=== PATIENT | female | born 1985 | race Caucasian/White ===

== ENCOUNTER 2017-03-22 00:29 | Emergency (ER) | payer OTHER ==
[2017-03-22 01:21] VITALS: BP 108/65; PULSE 84; TEMP 98; BMI 26.6
[2017-03-22] MEDS ORDERED: LIDOCAINE HCL 1%, 10 MG/ML (50 mL VIAL) SQ ONE (02:40)
[2017-03-22] MEDS ORDERED: BUPIVACAINE HCL/PF (5 MG/ML) 30 ML VIAL IJ ONE (02:41)
[2017-03-22] MEDS ORDERED: diazePAM 2 MG TABLET PO ONE (03:02)
--- NOTE | 2017-03-22 03:21 | PDOC ---
History of Present Illness - General Chief Complaint: Oral Ulcers Stated Complaint: GUM PAIN Time Seen by Provider: 03/22/17 01:30 Past History - Past Medical History Allergies/Adverse Reactions: Allergies Allergy/AdvReac Type Severity Reaction Status Date / Time ibuprofen Allergy Swelling Verified 03/22/17 02:34 Home Medications: Ambulatory Orders NK [No Known Home Medication] 11/30/15 Anemia: Yes - Immunization History Immunization Up to Date: Yes - Suicide/Smoking/Psychosocial Hx Smoking History: Smoker current status UNK Have you smoked in the past 12 months: No Number of Cigarettes Smoked Daily: 2 Information on smoking cessation initiated: No 'Breaking Loose' booklet given: 05/02/15 Hx Alcohol Use: No Drug/Substance Use Hx: No Substance Use Type: None *Physical Exam - Vital Signs Last Vital Signs Temp Pulse Resp BP Pulse Ox 98.0 F 84 18 108/65 100 03/22/17 01:19 03/22/17 01:19 03/22/17 01:19 03/22/17 01:19 03/22/17 01:19 *DC/Admit/Observation/Transfer Diagnosis at time of Disposition: Pain, dental - Discharge Dispostion Disposition: HOME Condition at time of disposition: Stable Admit: No - Referrals Referrals: Nisa Dockery MD [Primary Care Provider] - - Patient Instructions Printed Discharge Instructions: DI for Dental Pain Additional Instructions: As discussed, you must follow up with oral surgeon TOMORROW. Continue taking the Percocet and antibiotics that were prescribed by your surgeon as prescribed. If you develop any fever, chills, vomiting, diarrhea, difficulty breathing, or any new or worsening symptoms, please return to the ER. - Post Discharge Activity Forms/Work/School Notes: Back to Work
== END 2017-03-22 04:08 | disposition home or self-care (01) ==
LOC: JER 00:29
PROC: 3E0T3BZ Introduction of Anesthetic Agent into Peripheral Nerves and Plexi, Percutaneous Approach (ICD-10-PCS; principal; 2017-03-22)
PROC: 3E0T3BZ Introduction of Anesthetic Agent into Peripheral Nerves and Plexi, Percutaneous Approach (ICD-10-PCS; 2017-03-22)
DX: K08.89 Other specified disorders of teeth and supporting structures (principal)
CPT/HCPCS: 99281-25

== ENCOUNTER 2017-05-14 07:12 | Emergency (ER) | payer OTHER ==
[2017-05-14 07:19] VITALS: BMI 27.4
[2017-05-14] MEDS ORDERED: MAG HYDROX/AL HYDROX/SIMETH 30 ML UNIT-DOSE CUP PO ONE (07:49)
[2017-05-14] MEDS ORDERED: FAMOTIDINE IV 20 MG/12 ML VIAL IVPUSH ONE (07:49)
[2017-05-14] MEDS ORDERED: SODIUM CHLORIDE 1,000 ML IV STA (07:50)
[2017-05-14] MEDS ORDERED: ONDANSETRON 4 MG/2 ML VIAL IVPUSH ONE (07:50)
[2017-05-14] MEDS ORDERED: ONDANSETRON 4 MG/2 ML VIAL ONE (07:55)
[2017-05-14] MEDS ORDERED: MAG HYDROX/AL HYDROX/SIMETH 30 ML UNIT-DOSE CUP ONE (07:55)
[2017-05-14] MEDS ORDERED: FAMOTIDINE 20 MG/50 ML IVPB 20 MG/50 ML MG IVPB ONE (07:55)
--- NOTE | 2017-05-14 07:59 | PDOC ---
History of Present Illness - General Chief Complaint: Vomiting/Diarrhea Stated Complaint: VOMITING/DIARRHEA Time Seen by Provider: 05/14/17 07:37 History Source: Patient - History of Present Illness Timing/Duration: reports: other (last night) Abdominal Pain Onset Location: reports: epigastric Past History - Past Medical History Allergies/Adverse Reactions: Allergies Allergy/AdvReac Type Severity Reaction Status Date / Time ibuprofen Allergy Swelling Verified 05/14/17 07:19 Home Medications: Ambulatory Orders Metoclopramide HCl [Reglan] 10 mg PO Q8H #15 tablet 05/14/17 Ranitidine HCl [Zantac] 150 mg PO BID #14 tablet 05/14/17 Anemia: Yes ("borderline") Asthma: Yes COPD: No Other medical history: migraines - Immunization History Immunization Up to Date: Yes - Suicide/Smoking/Psychosocial Hx Smoking History: Smoker current status UNK Have you smoked in the past 12 months: No Number of Cigarettes Smoked Daily: 2 'Breaking Loose' booklet given: 05/02/15 Hx Alcohol Use: No Drug/Substance Use Hx: No Substance Use Type: None Review of Systems - Review of Systems Constitutional: No: Chills, Fever Respiratory: No: Shortness of Breath ABD/GI: Yes: Diarrhea, Nausea, Vomiting *Physical Exam - Vital Signs Last Vital Signs Temp Pulse Resp BP Pulse Ox 98.0 F 107 H 16 105/70 97 05/14/17 07:17 05/14/17 07:17 05/14/17 07:17 05/14/17 07:17 05/14/17 07:17 - Physical Exam General Appearance: Yes: Appropriately Dressed, Mild Distress HEENT: positive: Normal Voice Neck: positive: Supple Respiratory/Chest: negative: Respiratory Distress Gastrointestinal/Abdominal: positive: Normal Bowel Sounds, Tender (to epigastrium), Soft. negative: Distended, Guarding, Rebound Musculoskeletal: negative: CVA Tenderness Integumentary: positive: Dry, Warm Neurologic: positive: Fully Oriented, Alert, Normal Mood/Affect ED Treatment Course - LABORATORY CBC & Chemistry Diagram: 05/14/17 08:15 05/14/17 08:15 Medical Decision Making - Medical Decision Making 05/14/17 07:50 31-year-old female, endorses history of "acid reflux", not currently on medication, here with retrosternal burning pain radiating to throat w/ excessive burping, several episodes of nausea, vomiting and diarrhea since last night. States symptoms similar to her GERD, but worse and more constant. No hematemesis, hematochezia, melena, constipation, fever or chills. States she was told she needed an endoscopy in the near future but has not yet arranged to do so. Did have a colonoscopy in the past secondary to constipation and states colonoscopy was normal. See exam Possible GERD/gastritis, no h/o ulcer but no upper scope in past, very low suspicion for fortino, no RF for pancreatitis and NT over mcburneys Not on meds Tachy to 107 w/ minimal ttp to epigastrium -GI cocktail -labs -reassess/po trial -anticipate discharge to f/u with GI if labs wnl and pt improved 05/14/17 09:48 Found to be in ED, patient was not aware. Pt (s/p 1 elective AB ). No lower abd pain or vag bleed. Gets normal monthly periods and states last menstrual period was April 11 but does report that it was not entirely normal. States her last "normal" period was in January 2017. Beta and US pending. Epigastric pain and nausea since improved w/ meds 05/14/17 11:36 Beta 585. US read as small amount of fluid in the endometrial cavity with no evidence of identifiable IUP. No adnexal mass or FF seen. Recommending repeat evaluation with ultrasound and beta. Patient informed of results and given follow-up with Dr. Lennon of [facility]. Told she will need reassessment in 48 hours and if unable to see Dr. Lennon, should return to the ER. Pt reports no symptoms at this time and able to becca po. Stable for discharge *DC/Admit/Observation/Transfer Diagnosis at time of Disposition: Epigastric pain Qualifiers: Weeks of gestation: unspecified Qualified Code(s): Z34.90 - Encounter for supervision of normal , unspecified, unspecified trimester - Discharge Dispostion Disposition: HOME Condition at time of disposition: Improved - Prescriptions Prescriptions: Metoclopramide HCl [Reglan] 10 mg PO Q8H #15 tablet Ranitidine HCl [Zantac] 150 mg PO BID #14 tablet - Referrals Referrals: Nisa Dockery MD [Primary Care Provider] - Juan Luis Lennon MD [Staff Physician] - - Patient Instructions Printed Discharge Instructions: Managing Symptoms of , DI for Gastroesophageal Reflux Disease (GERD) Additional Instructions: You were found to be today. Your beta hCG was approximately 585. Your ultrasound did not show an identifiable at this time. This is possibly due to early . You will need a repeat evaluation with beta hCG and ultrasound in [address] Lennon for an appointment, but if you are unable to see him in 48 hours, return to the ER for reassessment. Take medications as prescribed. If symptoms worsen, return to ER - Post Discharge Activity
[2017-05-14 08:38] LABS: URINE APPEARANCE SLCLOUDY; URINE BILIRUBIN NEGATIVE (NEGATIVE); URINE BLOOD NEGATIVE (NEGATIVE); URINE COLOR YELLOW; URINE GLUCOSE (UA) NEGATIVE (NEGATIVE); URINE KETONE NEGATIVE (NEGATIVE); URINE LEUK ESTERASE NEGATIVE (NEGATIVE); URINE NITRITE NEGATIVE (NEGATIVE); URINE PROTEIN NEGATIVE (NEGATIVE); URINE UROBILINOGEN NEGATIVE mg/dL (0.2-1.0)
[2017-05-14 08:48] LABS: BASO % 0.1 % (0-2.0); EOS % 0.1 % (0-4.5); HEMATOCRIT 40.3 % (32.4-45.2); HEMOGLOBIN 12.6 GM/dL (10.7-15.3); LYMPH % 3.6 % (8-40); MCH 25.2 pg (25.7-33.7); MCHC 31.1 g/dl (32.0-36.0); MEAN CELL VOLUME 80.9 fl (80-96); MEAN PLT VOLUME 9.4 fl (7.5-11.1); MONO % 1.2 % (3.8-10.2); PLATELET COUNT 289 K/MM3 (134-434); RBC 4.99 M/mm3 (3.60-5.2); RDW 14.2 % (11.6-15.6); WHITE BLOOD COUNT 12.8 K/mm3 (4.0-10.0)
[2017-05-14 09:00] LABS: ALBUMIN 3.6 g/dl (3.4-5.0); ALK PHOS 74 U/L (45-117); ANION GAP 8 (8-16); BILIRUBIN,TOTAL 0.6 mg/dL (0.2-1.0); BLOOD UREA NITROGEN 15 mg/dL (7-18); CALCIUM 8.3 mg/dL (8.5-10.1); CHLORIDE 104 mmol/L (98-107); CO2 24 mmol/L (21-32); CREATININE 1.1 mg/dL (0.55-1.02); GLUCOSE,RANDOM 121 mg/dL (74-106); POTASSIUM 4.1 mmol/L (3.5-5.1); SGOT/AST 14 U/L (15-37); SGPT/ALT 26 U/L (12-78); SODIUM 136 mmol/L (136-145); TOT PROT 7.3 g/dl (6.4-8.2)
[2017-05-14] MEDS ORDERED: RANITIDINE HCL 150 MG TABLET (FP) PO ONE (09:21)
[2017-05-14] MEDS ORDERED: RANITIDINE HCL 150 MG TABLET (FP) ONE (09:53)
[2017-05-14 12:05] VITALS: BP 107/65; PULSE 92; TEMP 97.9
== END 2017-05-14 12:05 | disposition home or self-care (01) ==
LOC: JER 07:12
PROC: 3E033GC Introduction of Other Therapeutic Substance into Peripheral Vein, Percutaneous Approach (ICD-10-PCS; principal; 2017-05-14)
PROC: 3E033GC Introduction of Other Therapeutic Substance into Peripheral Vein, Percutaneous Approach (ICD-10-PCS; 2017-05-14)
DX: O26.891 Other specified pregnancy related conditions, first trimester (principal); R10.13 Epigastric pain; Z3A.01 Less than 8 weeks gestation of pregnancy
CPT/HCPCS: 36415; 76817-TC; 80053; 81003; 83690; 84702; 84703; 85025; 96374; 96375; 99285-25

== ENCOUNTER 2017-05-16 09:46 | Emergency (ER) | payer OTHER ==
[2017-05-16 10:23] VITALS: BP 103/54; PULSE 88; TEMP 98.1; BMI 25.8
--- NOTE | 2017-05-16 12:45 | PDOC ---
History of Present Illness - General Chief Complaint: Revisit, Lab Variance Stated Complaint: FOLLOW-UP Time Seen by Provider: 05/16/17 10:51 History Source: Patient Exam Limitations: No Limitations - History of Present Illness Initial Comments: 05/16/17 12:42 31 yr female states she was diagnosed with 2 days ago here for followup beta. Pt has no pain no bleeding. LMP 04/13/17 05/16/17 17:41 Past History - Past Medical History Allergies/Adverse Reactions: Allergies Allergy/AdvReac Type Severity Reaction Status Date / Time ibuprofen Allergy Swelling Verified 05/16/17 10:16 Home Medications: Ambulatory Orders NK [No Known Home Medication] 05/16/17 Anemia: Yes ("borderline") Asthma: Yes COPD: No - Immunization History Immunization Up to Date: Yes - Suicide/Smoking/Psychosocial Hx Smoking History: Former smoker Have you smoked in the past 12 months: Yes Number of Cigarettes Smoked Daily: 1 If you are a former smoker, when did you quit?: 10/16 Information on smoking cessation initiated: No 'Breaking Loose' booklet given: 05/02/15 Hx Alcohol Use: No Drug/Substance Use Hx: No Substance Use Type: None Review of Systems - Review of Systems Able to Perform ROS?: Yes Is the patient limited Syrian proficient: No Constitutional: No: Symptoms Reported HEENTM: No: Symptoms Reported Respiratory: No: Symptoms reported Cardiac (ROS): No: Symptoms Reported ABD/GI: No: Symptoms Reported : No: Symptoms Reported Musculoskeletal: No: Symptoms Reported Integumentary: No: Symptoms Reported Neurological: No: Symptoms reported *Physical Exam - Vital Signs Last Vital Signs Temp Pulse Resp BP Pulse Ox 98.1 F 88 16 103/54 100 05/16/17 10:17 05/16/17 10:17 05/16/17 10:17 05/16/17 10:17 05/16/17 10:17 - Physical Exam General Appearance: Yes: Nourished, Appropriately Dressed HEENT: positive: EOMI, MICAH Gastrointestinal/Abdominal: positive: Normal Bowel Sounds, Soft Extremity: positive: Normal Capillary Refill, Normal Inspection, Normal Range of Motion Integumentary: positive: Normal Color, Dry, Warm 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 *DC/Admit/Observation/Transfer Diagnosis at time of Disposition: at early stage - Discharge Dispostion Disposition: HOME Condition at time of disposition: Good - Referrals Referrals: Nisa Dockery MD [Primary Care Provider] - - Patient Instructions Additional Instructions: follow with your oxygen equipment preparer as planned start taking a pre- vitamin with folic acid (any over the counter brand) return to ER for any severe pain, vaginal bleeding or any other concerns - Post Discharge Activity
== END 2017-05-16 12:48 | disposition home or self-care (01) ==
LOC: JERFT 09:46
DX: Z32.01 Encounter for pregnancy test, result positive (principal)
CPT/HCPCS: 36415; 84702; 99281-25

== ENCOUNTER 2017-07-17 16:02 | Emergency (ER) | payer OTHER ==
[2017-07-17 16:36] VITALS: BP 111/59; PULSE 82; TEMP 97.7; BMI 28.1
--- NOTE | 2017-07-17 16:38 | PDOC ---
Rapid Medical Evaluation Time Seen by Provider: 07/17/17 16:36 Medical Evaluation: Allergies Allergy/AdvReac Type Severity Reaction Status Date / Time ibuprofen Allergy Swelling Verified 07/17/17 16:34 Vital Signs Temp Pulse Resp BP Pulse Ox 97.7 F 82 19 111/59 99 07/17/17 16:34 07/17/17 16:34 07/17/17 16:34 07/17/17 16:34 07/17/17 16:34 07/17/17 16:37 Pt c/o:sore throat x 1 day Pt on brief exam: erytgem todd 1 + tonsils and pharynx Pt ordered for : rapid strep Pt to proceed to the emergency department Discharge Disposition - Diagnosis Sore throat - Referrals - Patient Instructions - Post Discharge Activity
--- NOTE | 2017-07-17 17:13 | PDOC ---
History of Present Illness - History of Present Illness Initial Comments: 07/17/17 17:29 The patient is a 31 year old female, who is currently , who presents to the emergency department with cold symptoms since last night. Patient brought her son in as well for concern of strep throat. She states that since last night she has been congested and feels that her throat is sore. She states she did not take any medicine since she is . She denies recent fevers, ear pain, cough, headache or dizziness. She denies recent nausea, vomit, diarrhea or constipation. She denies recent chest pain or shortness of breath. Primary Care Physician: Nisa Gates <Chel Malik - Last Filed: 07/17/17 17:34> <Adriane Gant - Last Filed: 07/17/17 17:43> - General Chief Complaint: Sore Throat Stated Complaint: THROAT PAIN Time Seen by Provider: 07/17/17 16:36 Past History <Chel Malik - Last Filed: 07/17/17 17:34> - Past Medical History Anemia: Yes ("borderline") Asthma: Yes COPD: No - Immunization History Immunization Up to Date: Yes - Suicide/Smoking/Psychosocial Hx Smoking History: Former smoker Have you smoked in the past 12 months: Yes Number of Cigarettes Smoked Daily: 1 If you are a former smoker, when did you quit?: 10/16 Information on smoking cessation initiated: No 'Breaking Loose' booklet given: 05/02/15 Hx Alcohol Use: No Drug/Substance Use Hx: No Substance Use Type: None <Adriane Gant - Last Filed: 07/17/17 17:43> - Past Medical History Allergies/Adverse Reactions: Allergies Allergy/AdvReac Type Severity Reaction Status Date / Time ibuprofen Allergy Swelling Verified 07/17/17 16:34 Home Medications: Ambulatory Orders NK [No Known Home Medication] 05/16/17 Review of Systems - Review of Systems Comments:: 07/17/17 17:30 GENERAL/CONSTITUTIONAL: No fever. +chills. No weakness. HEAD, EYES, EARS, NOSE AND THROAT: No change in vision. No ear pain or discharge. +sore throat. GASTROINTESTINAL: No nausea, vomiting, diarrhea or constipation. GENITOURINARY: No dysuria, frequency, or change in urination. CARDIOVASCULAR: No chest pain or shortness of breath. RESPIRATORY: No cough, wheezing, or hemoptysis. MUSCULOSKELETAL: No joint or muscle swelling or pain. No neck or back pain. SKIN: No rash NEUROLOGIC: No headache, vertigo, loss of consciousness, or change in strength/ sensation. ENDOCRINE: No increased thirst. No abnormal weight change. HEMATOLOGIC/LYMPHATIC: No anemia, easy bleeding, or history of blood clots. ALLERGIC/IMMUNOLOGIC: No hives or skin allergy. <Chel Malik - Last Filed: 07/17/17 17:34> *Physical Exam - Vital Signs Last Vital Signs Temp Pulse Resp BP Pulse Ox 97.7 F 82 19 111/59 99 07/17/17 16:34 07/17/17 16:34 07/17/17 16:34 07/17/17 16:34 07/17/17 16:34 - Physical Exam Comments: 07/17/17 17:32 GENERAL: Awake, alert, and fully oriented, in no acute distress HEAD: No signs of trauma EYES: PERRLA, EOMI, sclera anicteric, conjunctiva clear ENT: Auricles normal inspection, hearing grossly normal, nares patent, oropharynx clear without exudates. Moist mucosa. Mild erythematous pharynx. Normal tonsils. NECK: Normal ROM, supple, no lymphadenopathy, JVD, or masses LUNGS: Breath sounds equal, clear to auscultation bilaterally. No wheezes, and no crackles HEART: Regular rate and rhythm, normal S1 and S2, no murmurs, rubs or gallops ABDOMEN: Soft, nontender, normoactive bowel sounds. No guarding, no rebound. No masses EXTREMITIES: Normal range of motion, no edema. No clubbing or cyanosis. No cords, erythema, or tenderness NEUROLOGICAL: Cranial nerves II through XII grossly intact. Normal speech, normal gait SKIN: Warm, Dry, normal turgor, no rashes or lesions noted. <Chel Malik - Last Filed: 07/17/17 17:34> - Vital Signs Last Vital Signs Temp Pulse Resp BP Pulse Ox 97.7 F 82 19 111/59 99 07/17/17 16:34 07/17/17 16:34 07/17/17 16:34 07/17/17 16:34 07/17/17 16:34 <Adriane Gant - Last Filed: 07/17/17 17:43> ED Treatment Course - ADDITIONAL ORDERS Additional order review: 07/17/17 16:42 Group A Strep Rapid Antigen - Final Throat <Chel Malik - Last Filed: 07/17/17 17:34> - ADDITIONAL ORDERS Additional order review: 07/17/17 16:42 Group A Strep Rapid Antigen - Final Throat <Adriane Gant - Last Filed: 07/17/17 17:43> Medical Decision Making - Medical Decision Making 07/17/17 17:38 A portion of this note was documented by scribe services under my direction. I have reviewed the details of the note, within reason, and agree with the documentation with the following case summary and management plan written by me. Patient is a 31-year-old female currently , who presents emergency department today complaining of 1 day of sore throat. Mild erythema to the posterior pharynx on exam however tonsils are normal size with no exudates. Vital signs stable patient afebrile. Instructed strep is negative at this time. We'll treat conservatively with Tylenol and symptomatic treatment. Return precautions given. Patient stands all discharge instructions and all questions were answered. <Adriane Gant - Last Filed: 07/17/17 17:43> *DC/Admit/Observation/Transfer - Attestations Scribe Attestion: 07/17/17 17:32 Documentation prepared by Chel Malik, acting as medical billing coordinator for [employer]. <Chel Malik - Last Filed: 07/17/17 17:34> - Discharge Dispostion Admit: No <Adriane Gant - Last Filed: 07/17/17 17:43> Diagnosis at time of Disposition: Sore throat - Discharge Dispostion Disposition: HOME Condition at time of disposition: Stable - Referrals Referrals: Brandie Davis MD [Staff Physician] - - Patient Instructions Printed Discharge Instructions: DI for Pharyngitis/Tonsillopharyngitis -- Adult Additional Instructions: You have a sore throat. This is most likely a viral infection. You may take Tylenol 650mg every 4 hours as needed for pain or fever. Warm water gargles and cough drops and just may also help her symptoms. Please throw way your toothbrush 3 days into treatment to prevent reinfection. Please follow up with your primary care doctor next week. A referral has been provided for you. Return to emergency department if you have worsening pain, difficulty swallowing , changes in your voice, lightheadedness, dizziness, or any changes in your symptoms. - Post Discharge Activity Forms/Work/School Notes: Back to Work
== END 2017-07-17 17:55 | disposition home or self-care (01) ==
LOC: JERFT 16:02
DX: O99.89 Other specified diseases and conditions complicating pregnancy, childbirth and the puerperium (principal); J02.9 Acute pharyngitis, unspecified; Z3A.00 Weeks of gestation of pregnancy not specified
CPT/HCPCS: 87070; 87430; 99281-25